=== PATIENT | female | born 1990 | race Caucasian/White ===

== ENCOUNTER 2021-11-04 18:06 | Emergency (ER) | payer BC ==
[~2021-11-04] VITALS: Ht 154.9 cm; Wt 63.5 kg
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
--- NOTE | 2021-11-04 19:05 | NUR ---
PT TAKEN FOR XRAY
[2021-11-04] MEDS ORDERED: KETOROLAC TROMETHAMINE INJ 60 MG/2 ML VIAL IM ONE (19:30)
[2021-11-04 19:35] VITALS: BP 130/88
[2021-11-04] MEDS ORDERED: KETOROLAC TROMETHAMINE INJ 30 MG/ML VIAL ONE (19:37)
[2021-11-04] MEDS ORDERED: CYCL5TAB PO (21:24)
[2021-11-04] MEDS ORDERED: NAPR-1164 PO (21:24)
--- NOTE | 2021-11-04 21:39 | NUR ---
Patient discharged to home in stable condition. Written and verbal after care instructions given. Patient verbalizes understanding of instruction. Pt ambulated out of ED. VSS.
== END 2021-11-04 21:40 | disposition home or self-care (01) ==
LOC: ER 18:12
DX: S33.6XXA Sprain of sacroiliac joint, initial encounter (principal); S39.012A Strain of muscle, fascia and tendon of lower back, initial encounter; F17.200 Nicotine dependence, unspecified, uncomplicated; V43.52XA Car driver injured in collision with other type car in traffic accident, initial encounter; Y93.89 Activity, other specified; Y92.411 Interstate highway as the place of occurrence of the external cause; Y99.8 Other external cause status
CPT/HCPCS: 72100; 72170; 84703; 96372; 99284; 99406; J1885